=== PATIENT | female | born 1960 | race Caucasian/White ===

== ENCOUNTER 2018-03-20 07:47 | Day surgery (SDC) | payer BC ==
[~2018-03-20 07:47] MED LIST: Lactated Ringers 1,000 ML IV SCH
[2018-03-20] MEDS ORDERED: Midazolam 1 MG/ML 2 ML SDV IV ONE (09:15)
[2018-03-20] MEDS ORDERED: Propofol 200 MG/20 ML SDV IV ONE (09:15)
--- NOTE | 2018-03-20 09:50 | PCM.OPNOTE ---
- General Post-Op/Procedure Note Date of Surgery/Procedure: 03/20/18 Operative Procedure(s): c scope with bx Findings: cecal polyp transverse colon polyp Pre Op Diagnosis: hx of adenomatous colon polyp Post-Op Diagnosis: cecal polyp. transverse colon polyp Anesthesia Technique: MAC Primary Surgeon: Josh Klein Anesthesia Provider: Bassam Moctezuma Pathology: cecal polyp transverse colon polyp Complications: None Condition: Good Free Text/Narrative:: see dictation
--- NOTE | 2018-03-20 14:05 | OR ---
DATE OF OPERATION: 03/20/2018 SURGEON: Josh Klein MD PROCEDURE PERFORMED: Colonoscopy with hot loop and cold forceps biopsy. PREOPERATIVE DIAGNOSIS: Personal history of adenomatous polyps. POSTOPERATIVE DIAGNOSIS: Cecal polyp and transverse colon polyp. INDICATIONS FOR PROCEDURE: This is a 57-year-old white female who presents for year followup. She was offered and accepted same. DESCRIPTION OF OPERATION: After an excellent IV sedation was administered, digital rectal exam was performed. No marked abnormality was noted. Flexible colonoscope was inserted and advanced to the cecum without difficulty. The following findings were noted. At the cecum, a flat sessile polyp of approximately 1 x 2 cm in size was encountered. Attempts to completely remove it with a hot loop snare were not successful. Multiple biopsies were taken and sent for permanent. The remainder of the ascending colon was unremarkable. Transverse colon, small polypoid lesion, biopsied and sent for permanent. Descending colon, unremarkable. Sigmoid and rectum were unremarkable. Colon was deflated as the scope was removed. The patient tolerated the procedure well and was taken to recovery room in a good condition. /[id number] /MODL
== END 2018-03-20 11:00 | disposition home or self-care (01) ==
LOC: FB.SDS 07:47
PROVIDERS: ATTEND Surgery
DX: Z12.11 Encounter for screening for malignant neoplasm of colon (principal); K63.5 Polyp of colon; I10 Essential (primary) hypertension; F32.9 Major depressive disorder, single episode, unspecified; F90.9 Attention-deficit hyperactivity disorder, unspecified type; K21.9 Gastro-esophageal reflux disease without esophagitis; J30.9 Allergic rhinitis, unspecified; E66.3 Overweight; Z68.33 Body mass index [BMI] 33.0-33.9, adult; Z86.010 Personal history of colon polyps; Z87.891 Personal history of nicotine dependence; Z79.899 Other long term (current) drug therapy
CPT/HCPCS: 45380; 88305; J2250; J2704; J7120

== ENCOUNTER 2019-03-26 07:26 | Day surgery (SDC) | payer BC ==
[2019-03-26] MEDS ORDERED: Propofol 200 MG/20 ML SDV IV ONE (07:27)
[2019-03-26] MEDS ORDERED: Lidocaine 4% 5 ML Amp INJECT ONE (07:27)
[2019-03-26] MEDS ORDERED: Sodium Chloride 0.9% 10 ML Syringe FLUSH PRN (07:30)
[2019-03-26] MEDS: Lactated Ringers 1,000 ML IV SCH (08:09)
--- NOTE | 2019-03-26 09:15 | PCM.OPNOTE ---
- General Post-Op/Procedure Note Date of Surgery/Procedure: 03/26/19 Operative Procedure(s): egd with bx. c scope Findings: 1. duodenal polyp vs. fold 2. gastritis, fundic gland hyperplasia 3. ? Tomas's esophagus 4. Nl colon Pre Op Diagnosis: hx of gerd. hx of colon polyp Post-Op Diagnosis: 1. duodenal polyp vs. fold2. gastritis, fundic gland hyperplasia3. ? Tomas's esophagus 4. Nl colon Anesthesia Technique: MAC Primary Surgeon: Josh Klein Anesthesia Provider: Annmarie Jimenez Pathology: duodenum stomach distal esophagus Complications: None Condition: Good Free Text/Narrative:: see dictation
[2019-03-26 10:02] VITALS: BP 118/82
--- NOTE | 2019-03-26 14:12 | OR ---
DATE OF OPERATION: 03/26/2019 SURGEON: Josh Klein MD PROCEDURE PERFORMED: Upper endoscopy and colonoscopy. PREOPERATIVE DIAGNOSES: 1. History of gastroesophageal reflux disease. 2. History of colon polyps. INDICATIONS FOR PROCEDURE: This is a 58-year-old white female. She is due for followup colonoscopy due to a history of adenomatous colon polyps, but in addition, she relates a greater than 10-year history of gastroesophageal reflux disease. She has never had an upper endoscopy, and she was offered and accepted both procedures at the same time. DESCRIPTION OF OPERATION: After an excellent sedation was administered, the bite block was inserted. The flexible endoscope was passed without difficulty down the patient's esophagus into the stomach. Stomach was insufflated, scope passed through the pylorus to the second portion of the duodenum and slowly withdrawn. The following findings were noted: In the duodenum, there was a prominent fold versus polyp. This was biopsied with cold biopsy forceps and sent for permanent. Photo was taken as well. Stomach did demonstrate some gastritis, as well as some fundic gland hyperplasia. Biopsies were taken of the fundic gland, as well as the stomach, and submitted in a separate container. GE junction there appeared to be some intestinal metaplasia consistent with Tomas's esophagus for approximately 2 to 3 cm. Circumferential biopsies were taken to confirm the diagnosis. The remainder of the esophageal exam was unremarkable. Stomach was deflated and scope removed. Our attention was then turned to the patient's colon. Digital rectal exam was performed. No marked abnormality was noted. Flexible colonoscope was inserted and advanced to the cecum. Prep was excellent. The following findings were noted: Ascending colon, unremarkable. Transverse colon, unremarkable. Descending colon, unremarkable. Sigmoid and rectum, unremarkable. Colon was deflated. The scope was removed. The patient tolerated the procedure well, was taken to recovery in good condition. /[id number] /MODL
== END 2019-03-26 09:56 | disposition home or self-care (01) ==
LOC: FB.SDS 07:26
PROVIDERS: ATTEND Surgery
DX: Z12.11 Encounter for screening for malignant neoplasm of colon (principal); K21.0 Gastro-esophageal reflux disease with esophagitis; K29.50 Unspecified chronic gastritis without bleeding; K29.80 Duodenitis without bleeding; K31.7 Polyp of stomach and duodenum; I10 Essential (primary) hypertension; E78.5 Hyperlipidemia, unspecified; J30.9 Allergic rhinitis, unspecified; F90.2 Attention-deficit hyperactivity disorder, combined type; F41.1 Generalized anxiety disorder; R73.03 Prediabetes; E66.9 Obesity, unspecified; Z68.33 Body mass index [BMI] 33.0-33.9, adult; Z86.010 Personal history of colon polyps; Z87.891 Personal history of nicotine dependence; Z80.0 Family history of malignant neoplasm of digestive organs; Z83.71 Family history of colonic polyps; Z79.82 Long term (current) use of aspirin; Z79.899 Other long term (current) drug therapy
CPT/HCPCS: 36415; 84132; 88305; 88313; 88342; J2001; J2704; J7120